=== PATIENT | male | born 1950 | race Caucasian/White ===

== ENCOUNTER 2016-03-21 17:42 | Inpatient (IN) | payer BC, OTHER ==
[~2016-03-21] VITALS: Ht 180.3 cm; Wt 102.9 kg
[2016-03-21] VITALS (8 sets, daily range): BP systolic 129–194; BP diastolic 75–113; PULSE 82–107; RESP 15–20; TEMP 97.6–100.8; O2SAT 93–100
[~2016-03-21 17:42] MED LIST: FLEX5TAB PO; MOTR200T47 PO
[2016-03-21] MEDS ORDERED: SODIUM CHLOR 0.9% 1000 ML INJ 1,000 ML IV SCH ×2 (18:18→19:30)
[2016-03-21] MEDS ORDERED: SODIUM CHLORIDE 0.9% FLUSH 5 ML FLUSH IVF PRN (18:30)
[2016-03-21] MEDS ORDERED: ACETAMINOPHEN 325 MG TAB PO ONE (18:30)
[2016-03-21] MEDS ORDERED: ONDANSETRON HCL 4 MG/2 ML VIAL IVP ONE (18:30)
--- NOTE | 2016-03-21 18:36 | PD ---
HPI Chief Complaint: Cold / Flu Symptoms Time Seen by Provider: 18:31 Travel History International Travel<30 days: No Contact w/Intl Traveler<30days: No Traveled to known affect area: No History of Present Illness HPI Patient is a 65-year-old otherwise healthy male presenting with fever, cough and body aches for 24 hours. MAXIMUM TEMPERATURE is 102.5 Fahrenheit, he has been taking ibuprofen which has helped. Last dose was today. He reports some "upset stomach "which she describes as a discomfort around his epigastrium but denies any pain. He reports nausea but denies vomiting. He reports reduced oral intake including fluids. He has had some loose stool but denies diarrhea, hematochezia and melena. He denies any abdominal, back or flank pain. He denies any ENT/URI symptoms. Cough is mostly dry with occasional white sputum. Denies wheezing and dyspnea and chest pain. He denies headache and neck stiffness. He did not receive influenza vaccine or Pneumovax. He has had some dysuria with increased urinary frequency without urinary urgency, penile lesions , scrotal pain or edema, anal or perineal pain and pyuria. [facility] Past Medical History Medical History: Denies Significant Hx Tetanus Vaccination: > 5 Years Influenza Vaccination: No Past Surgical History Neurologic Surgery: Yes (BACK) Social History Alcohol Use: No Tobacco Use: No Substance Use: No Allergies-Medications (Allergen,Severity, Reaction): Coded Allergies: Codeine (Verified Allergy, Mild, Nausea/Vomiting, 03/21/16) Reported Meds & Prescriptions Reported Meds & Active Scripts Active No Active Prescriptions or Reported Medications Review of Systems Except as stated in HPI: all other systems reviewed are Neg Physical Exam Narrative GENERAL: Well-developed and well-nourished adult male in no acute distress. SKIN: Warm and dry. Good turgor without tenting. HEAD: Normocephalic and atraumatic. EYES: PERRL bilaterally, 5mm. EOMI bilaterally. No injection or icterus present. No proptosis. Lids without edema or erythema. ENT: Bilateral ear canals are non-edematous/non-erythematous without otorrhea. Bilateral TMs have intact landmarks and without distortion, perforation, air- fluid level or erythema. Nasal mucosa pink and moist without discharge, septum intact and midline. Buccal mucosa pink and moist. Oropharynx reveals erythematous bilateral anterior tonsillar pilar is without tonsillar hypertrophy , masses, swelling, asymmetry and exudates. Uvula midline and airway patent. NECK: Supple, no meningeal signs. Trachea midline, no JVD. No cervical or facial lymphadenopathy. CARDIOVASCULAR: Mild tachycardia (100) with regular rhythm without murmurs, rubs , clicks or gallops. Radial and posterior tibial pulses 2+ bilaterally. No pedal edema. RESPIRATORY: Clear to auscultation bilaterally with symmetrical rise and fall, no distress or use of accessory muscles. GASTROINTESTINAL: Non-tender, non-distended. Normal bowel sounds all 4 quadrants. No masses or organomegaly present. MUSCULOSKELETAL: No gait disturbances. Patient freely moving all four extremities spontaneously. Extremities without clubbing, cyanosis, or edema. No obvious deformities. NEUROLOGIC: CN II-XII grossly intact. Awake and alert. Motor grossly within normal limits. Normal speech. PSYCHIATRIC: Appropriate mood and affect; insight and judgment normal. Data Data Last Documented VS Vital Signs Date Time Temp Pulse Resp B/P Pulse Ox O2 Delivery O2 Flow Rate FiO2 03/21/16 18:56 100 172/101 03/21/16 18:54 100.8 18 97 03/21/16 18:22 Room Air Orders Electrocardiogram (03/21/16 18:18) Complete Blood Count With Diff (03/21/16 18:18) Comprehensive Metabolic Panel (03/21/16 18:18) Group A Rapid Strep Screen (03/21/16 18:18) Influenzae A/B Antigen (03/21/16 18:18) Chest, Pa & Lat (03/21/16 18:18) Ecg Monitoring (03/21/16 18:18) Iv Access Insert/Monitor (03/21/16 18:18) Oximetry (03/21/16 18:18) Acetaminophen (Tylenol) (03/21/16 18:30) Sodium Chloride 0.9% Flush (Ns Flush) (03/21/16 18:30) Lipase (03/21/16 18:18) Prothrombin Time / Inr (Pt) (03/21/16 18:18) Act Partial Throm Time (Ptt) (03/21/16 18:18) Urinalysis - C+S If Indicated (03/21/16 18:18) Ondansetron Inj (Zofran Inj) (03/21/16 18:30) Sodium Chlor 0.9% 1000 Ml Inj (Ns 1000 M (03/21/16 18:18) Troponin I (03/21/16 18:18) Lactic Acid Sepsis Protocol (03/21/16 18:18) Blood Culture (03/21/16 18:18) Urine Culture (03/21/16 18:35) Strep Culture (Group A) (03/21/16 18:35) Ceftriaxone Inj (Rocephin Inj) (03/21/16 19:30) Vancomycin Inj (Vancomycin Inj) (03/21/16 19:30) Sodium Chlor 0.9% 1000 Ml Inj (Ns 1000 M (03/21/16 19:30) Labs Laboratory Tests Test 03/21/16 03/21/16 18:15 18:35 White Blood Count 12.5 TH/MM3 Red Blood Count 5.40 MIL/MM3 Hemoglobin 15.5 GM/DL Hematocrit 46.1 % Mean Corpuscular Volume 85.5 FL Mean Corpuscular Hemoglobin 28.8 PG Mean Corpuscular Hemoglobin 33.6 % Concent Red Cell Distribution Width 14.4 % Platelet Count 194 TH/MM3 Mean Platelet Volume 6.6 FL Neutrophils (%) (Auto) 87.2 % Lymphocytes (%) (Auto) 6.1 % Monocytes (%) (Auto) 5.5 % Eosinophils (%) (Auto) 0.9 % Basophils (%) (Auto) 0.3 % Neutrophils # (Auto) 10.9 TH/MM3 Lymphocytes # (Auto) 0.8 TH/MM3 Monocytes # (Auto) 0.7 TH/MM3 Eosinophils # (Auto) 0.1 TH/MM3 Basophils # (Auto) 0.0 TH/MM3 CBC Comment DIFF FINAL Differential Comment Prothrombin Time 12.0 SEC Prothromb Time International 1.1 RATIO Ratio Activated Partial 30.1 SEC Thromboplast Time Sodium Level 134 MEQ/L Potassium Level 3.9 MEQ/L Chloride Level 99 MEQ/L Carbon Dioxide Level 25.7 MEQ/L Anion Gap 9 MEQ/L Blood Urea Nitrogen 15 MG/DL Creatinine 1.36 MG/DL Estimat Glomerular Filtration 53 ML/MIN Rate Random Glucose 95 MG/DL Lactic Acid Level 1.2 mmol/L Calcium Level 8.8 MG/DL Total Bilirubin 1.0 MG/DL Aspartate Amino Transf 18 U/L (AST/SGOT) Alanine Aminotransferase 23 U/L (ALT/SGPT) Alkaline Phosphatase 75 U/L Troponin I 0.03 NG/ML Total Protein 8.5 GM/DL Albumin 3.7 GM/DL Lipase 221 U/L Urine Color YELLOW Urine Turbidity HAZY Urine pH 7.0 Urine Specific [place] 1.019 Urine Protein TRACE mg/dL Urine Glucose (UA) NEG mg/dL Urine Ketones NEG mg/dL Urine Occult Blood SMALL Urine Nitrite POS Urine Bilirubin NEG Urine Urobilinogen LESS THAN 2.0 MG/DL Urine Leukocyte Esterase LARGE Urine RBC 41 /hpf Urine WBC /hpf Urine Bacteria MANY /hpf Urine Mucus MANY /lpf Microscopic Urinalysis Comment CULTURE INDICATED MDM Medical Decision Making Medical Screen Exam Complete: Yes Emergency Medical Condition: Yes Interpretation(s) EKG: Normal sinus rhythm rate of 96. No complete right bundle-branch block with evidence of right ventricular conduction delay. Oral and pulse criteria for LVH. No ST-T changes. Normal axis. Last 24 hours Impressions Chest X-Ray 03/21/168 Signed Impressions: Service Date/Time: February 18:42 - CONCLUSION: No evidence of acute cardiopulmonary disease. Jovan Santizo MD Laboratory Tests Test 03/21/16 03/21/16 18:15 18:35 White Blood Count 12.5 TH/MM3 (4.0-11.0) Red Blood Count 5.40 MIL/MM3 (4.50-5.90) Hemoglobin 15.5 GM/DL (13.0-17.0) Hematocrit 46.1 % (39.0-51.0) Mean Corpuscular Volume 85.5 FL (80.0-100.0) Mean Corpuscular Hemoglobin 28.8 PG (27.0-34.0) Mean Corpuscular Hemoglobin 33.6 % Concent (32.0-36.0) Red Cell Distribution Width 14.4 % (11.6-17.2) Platelet Count 194 TH/MM3 (150-450) Mean Platelet Volume 6.6 FL (7.0-11.0) Neutrophils (%) (Auto) 87.2 % (16.0-70.0) Lymphocytes (%) (Auto) 6.1 % (9.0-44.0) Monocytes (%) (Auto) 5.5 % (0.0-8.0) Eosinophils (%) (Auto) 0.9 % (0.0-4.0) Basophils (%) (Auto) 0.3 % (0.0-2.0) Neutrophils # (Auto) 10.9 TH/MM3 (1.8-7.7) Lymphocytes # (Auto) 0.8 TH/MM3 (1.0-4.8) Monocytes # (Auto) 0.7 TH/MM3 (0-0.9) Eosinophils # (Auto) 0.1 TH/MM3 (0-0.4) Basophils # (Auto) 0.0 TH/MM3 (0-0.2) CBC Comment DIFF FINAL Differential Comment Prothrombin Time 12.0 SEC (9.8-11.6) Prothromb Time International 1.1 RATIO Ratio Activated Partial 30.1 SEC Thromboplast Time (24.3-30.1) Sodium Level 134 MEQ/L (136-145) Potassium Level 3.9 MEQ/L (3.5-5.1) Chloride Level 99 MEQ/L (98-107) Carbon Dioxide Level 25.7 MEQ/L (21.0-32.0) Anion Gap 9 MEQ/L (5-15) Blood Urea Nitrogen 15 MG/DL (7-18) Creatinine 1.36 MG/DL (0.60-1.30) Estimat Glomerular Filtration 53 ML/MIN (>89) Rate Random Glucose 95 MG/DL (74-106) Lactic Acid Level 1.2 mmol/L (0.4-2.0) Calcium Level 8.8 MG/DL (8.5-10.1) Total Bilirubin 1.0 MG/DL (0.2-1.0) Aspartate Amino Transf 18 U/L (15-37) (AST/SGOT) Alanine Aminotransferase 23 U/L (12-78) (ALT/SGPT) Alkaline Phosphatase 75 U/L (45-117) Troponin I 0.03 NG/ML (0.02-0.05) Total Protein 8.5 GM/DL (6.4-8.2) Albumin 3.7 GM/DL (3.4-5.0) Lipase 221 U/L (73-393) Urine Color YELLOW (YELLW/STRAW) Urine Turbidity HAZY (CLEAR) Urine pH 7.0 (5.0-8.5) Urine Specific [place] 1.019 (1.002-1.035) Urine Protein TRACE mg/dL (NEG-TRACE) Urine Glucose (UA) NEG mg/dL (NEG) Urine Ketones NEG mg/dL (NEG) Urine Occult Blood SMALL (NEG) Urine Nitrite POS (NEG) Urine Bilirubin NEG (NEG) Urine Urobilinogen LESS THAN 2.0 MG/DL (LESS THAN 2.0) Urine Leukocyte Esterase LARGE (NEG) Urine RBC 41 /hpf (0-3) Urine WBC /hpf (0-5) Urine Bacteria MANY /hpf (NONE) Urine Mucus MANY /lpf (OCC) Microscopic Urinalysis Comment CULTURE INDICATED Differential Diagnosis Viral syndrome versus pneumonia versus UTI versus enteritis versus dehydration versus electrolyte disturbance Narrative Course Patient is a 65-year-old otherwise healthy male with a remote history of lumbar surgery presenting with fever, myalgias and mildly white sputum producing cough for 24 hours. He also reports an dysuria and increased urinary frequency. He has some nausea with occasional "upset stomach" but denies any abdominal pain. Abdomen is benign on exam. Lungs clear to auscultation. No meningeal signs. Elevated temperature present and mild tachycardia present. Patient was given 1 L normal saline bolus, acetaminophen and Zofran ordered labs including troponin , CK-MB, lactic acid, blood cultures and lipase. Ordered EKG and chest x-ray as well as rapid strep and influenza test. Chest x-ray and EKG unremarkable. UA positive for nitrites, leukocyte esterase, 21 RBCs and a WBC with many bacteria. WBC shows leukocytosis of 12.5 with a neutrophilia, no bands. At about panel shows sodium 134. Creatinine 1.36, troponin 0.03. Lactic acid 1.2. Patient heart rate was only mildly reduced with the liter bolus and temperature actually went up while waiting for the workup. Discussed with Dr. Lynn who agrees that although the lactic acid is not elevated there is a concern for urosepsis. Patient was given ceftriaxone and vancomycin and additional bolus of saline and admitted. I gave report to Dr. Sheriff who accepted the admission. Diagnosis Primary Impression: Urinary tract infection Qualified Code: N30.01 - Acute cystitis with hematuria Admitting Information Admitting Physician Requests: Admit Scripts No Active Prescriptions or Reported Meds Condition: Stable Jovan Pulliam III Mar 21, 2016 18:36
[2016-03-21 18:48] LABS: AUTOMATED NEUTROPHIL # 10.9 TH/MM3 (1.8-7.7); BASOPHIL % 0.3 % (0.0-2.0); EOSINOPHIL # 0.1 TH/MM3 (0-0.4); EOSINOPHIL % 0.9 % (0.0-4.0); HEMATOCRIT 46.1 % (39.0-51.0); HEMO FLAGS DIFF FINAL; LYMPH % 6.1 % (9.0-44.0); LYMPHOCYTE # 0.8 TH/MM3 (1.0-4.8); MEAN CELL VOLUME 85.5 FL (80.0-100.0); MEAN CORPUSCULAR HEMOGLOBIN 28.8 PG (27.0-34.0); MEAN CORPUSCULAR HGB CONC 33.6 % (32.0-36.0); MONO % 5.5 % (0.0-8.0); NEUT % 87.2 % (16.0-70.0); PLATELET COUNT 194 TH/MM3 (150-450); RED CELL DISTRIBUTION WIDTH 14.4 % (11.6-17.2); WHITE BLOOD COUNT 12.5 TH/MM3 (4.0-11.0)
[2016-03-21 18:53] LABS: BACTERIA, URINE MANY /hpf; BLOOD, URINE SMALL (NEG); COMMENT (UR) CULTURE INDICATED; CULTURE IF INDICATED CULTURE INDICATED; GLUCOSE,URINE NEG (NEG); KETONE, URINE NEG (NEG); MUCUS URINE MANY /lpf (OCC); URINE COLOR YELLOW (YELLW/STRAW)
[2016-03-21 18:54] LABS: NITRITE,URINE POS (NEG)
--- NOTE | 2016-03-21 18:54 | RADRPT ---
EXAM DATE/TIME: 03/21/2016 18:42 [facility] COMPARISON: No previous studies available for comparison. INDICATIONS : Fever. Congestion. MEDICAL HISTORY : None. SURGICAL HISTORY : None. ENCOUNTER: Initial ACUITY: 3 days PAIN SCORE: 6/10 LOCATION: Bilateral chest FINDINGS: PA and lateral views of the chest demonstrate the lungs to be symmetrically aerated without evidence of mass, infiltrate or effusion. The cardiomediastinal contours are unremarkable. Osseous structure s are intact. CONCLUSION: No evidence of acute cardiopulmonary disease. Jovan Santizo MD on March 21, 2016 at 18:52 Board Certified Radiologist. This report was verified electronically.
[2016-03-21 18:58] LABS: APTT (PATIENT) 30.1 SEC (24.3-30.1); INTERNATIONAL NORMALIZED RATIO 1.1 RATIO
[2016-03-21 19:18] LABS: ANION GAP 9 MEQ/L (5-15); AST (GOT) 18 U/L (15-37); BICARBONATE 25.7 MEQ/L (21.0-32.0); BLOOD UREA NITROGEN 15 MG/DL (7-18); CHLORIDE 99 MEQ/L (98-107); GLOMERULAR FILTRATION RATE 53 ML/MIN (>89); POTASSIUM 3.9 MEQ/L (3.5-5.1); SODIUM (NA) 134 MEQ/L (136-145)
[2016-03-21 19:23] LABS: ALKALINE PHOSPHATASE 75 U/L (45-117); ALT (GPT) 23 U/L (12-78)
[2016-03-21] MEDS ORDERED: cefTRIAXone INJ 1,000 MG in SODIUM CHLORIDE 0.9% INJ 100 ML IV ONE (19:30)
[2016-03-21] MEDS ORDERED: VANCOMYCIN INJ 1,000 MG in SODIUM CHLOR 0.9% 250 ML INJ 250 ML IV ONE (19:30)
[2016-03-21] MEDS: SODIUM CHLOR 0.9% 1000 ML INJ 1,000 ML IV SCH (21:22)
[2016-03-22 01:51] VITALS: BP 161/90; TEMP 102.1
[2016-03-22] MEDS: ACETAMINOPHEN 325 MG TAB PO PRN ×3 (03:21→17:09)
[2016-03-22 03:59] VITALS: BP 130/79; PULSE 109; RESP 20; TEMP 100.2; O2SAT 95
[2016-03-22] MEDS: SODIUM CHLOR 0.9% 1000 ML INJ 1,000 ML IV SCH ×2 (06:13→17:25)
[2016-03-22 06:42] LABS: HEMATOCRIT 41.2 % (39.0-51.0); MEAN CELL VOLUME 85.4 FL (80.0-100.0); MEAN CORPUSCULAR HEMOGLOBIN 28.6 PG (27.0-34.0); MEAN CORPUSCULAR HGB CONC 33.6 % (32.0-36.0); PLATELET COUNT 174 TH/MM3 (150-450); RED BLOOD COUNT 4.83 MIL/MM3 (4.50-5.90); RED CELL DISTRIBUTION WIDTH 13.6 % (11.6-17.2); REVIEW FLAG FINAL; WHITE BLOOD COUNT 11.4 TH/MM3 (4.0-11.0)
[2016-03-22 07:08] LABS: POTASSIUM 3.9 MEQ/L (3.5-5.1)
[2016-03-22 07:46] VITALS: BP 111/66; PULSE 88; RESP 18; TEMP 98.7; O2SAT 94
[2016-03-22] MEDS: FAMOTIDINE 20 MG TAB PO SCH ×2 (09:02→22:43)
[2016-03-22] MEDS ORDERED: TAMSULOSIN HCL 0.4 MG CAP PO ONE (10:00)
--- NOTE | 2016-03-22 10:38 | MH ---
cc: BRITT BLACKMAN D.O.,NIKOLAY Issa MD DATE OF ADMISSION 03/21/[address] Britt Blackman CHIEF COMPLAINT The patient came to the ER complaining of fever or chills and weakness for two days. HISTORY OF PRESENT ILLNESS This is a pleasant 65-year-old male with no significant past medical history except arthritis affecting his hands and degenerative disk disease for which he underwent laminectomy several years ago. He was in his usual state of health until developing high-grade fevers associated with chills, malaise and weakness. He also reports having some queasiness and an upset stomach. He had taken ibuprofen to help control his temperature. He denies vomiting per se. Denies hematemesis. Denies melena or bright red blood per rectum. He has not been eating very well. He reports dark urine with hesitancy and weak stream. He has to strain to get the urine out. She has a mild cough which is dry and nonproductive. He ended up coming to the hospital and upon arrival, he was noted to be febrile. He was tachycardic, his white count was elevated at 12,000 with a left shift. Urinalysis evidence pyuria and bacteriuria. He was diagnosed with a urinary tract infection and possible early sepsis. Recommendation was given by ER physician for the patient to be admitted to the hospital for observation. The patient was given IV fluids, IV antibiotic and blood cultures were taken. He spiked a temperature again last night to 102 degrees Fahrenheit. He is currently resting in bed. He is feeling somewhat better. He denies chest pain, dyspnea, orthopnea, paroxysmal nocturnal dyspnea. PAST MEDICAL HISTORY This patient is significant for: 1. Degenerative disc disease 2. Degenerative joint disease 3. Prior history of UTI about a year ago. PAST SURGICAL HISTORY Significant for: 1. Lumbar laminectomy 2. Previous colonoscopy SOCIAL HISTORY The patient denies smoking, drinking or drug abuse. He is and lives with his . He works for a [employer] 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 HOME MEDICATIONS He does not take any medication on a daily and basis. He just took ibuprofen recently after having fever. FAMILY HISTORY Both her parents are . Mom in her 60s. She had dementia. Dad in his 70s of unknown cause. He has 11 siblings. They are healthy and living except one who of AIDS. REVIEW OF SYSTEMS The patient denies recent travel. Denies any penile discharges. He reports a weak urinary stream with postvoid dribbling. He sometimes gets up at night to urinate. He claimed that his prostate was checked over a year ago and it was "okay". He denies flank pain. Denies chest pain, shortness of orthopnea or paroxysmal nocturnal dyspnea. Otherwise review of systems is negative for 12 systems except for what is mentioned above. EXAMINATION This is a middle-aged male lying in bed not in any acute distress at this time. He is awake and alert. He is oriented x3. VITAL SIGNS: Upon arrival, blood pressure 153/97, pulse of 100, respirations 16, temperature 100.1, O2 sat 97%. T-max is 102.1 degrees Fahrenheit. HEAD: Normocephalic, atraumatic. EYES: Extraocular movements intact. Pupils are round and reactive. There is no icterus or significant pallor. ENT: No throat congestion. No oral ulcers or thrush. Ears clear. NECK: Supple. No JVD. No lymph nodes or bruits. CARDIOVASCULAR: S1-S2 audible. Regular rhythm. No murmur or gallop. RESPIRATORY: Lungs are clear to auscultation. No crackles or rhonchi appreciated. GI: Soft, protuberant bulky, nontender. Positive bowel sounds. No CVA tenderness. The patient has supra pubic tenderness which is mild. No guarding or rebound. EXTREMITIES: No edema, cyanosis or clubbing. Feet are warm to touch. Homans' sign is negative. NEUROLOGIC: He is awake and alert. He is oriented x3. No facial asymmetry. Moving all four extremities. LABORATORY DATA White count of 12.5, hemoglobin 15.3, hematocrit 46.1, platelet count of 194, MCV of 85.5. Repeat white count this morning 11.4. Sodium 154, potassium 3.9, chloride 99, bicarb 25.7, BUN of 15, creatinine 1.36, glucose 95, calcium was 8.8. LFTs essentially unremarkable except for total protein is elevated at 8.5. His urine pH 7.0, specific gravity 1.019, nitrite positive, leukocyte esterase large, bacteria many, RBCs 41. Chest x-ray was taken and this study was negative for acute infiltrate or effusion. ASSESSMENT 1. Acute febrile illness with pyuria and bacteruria in this middle-aged male. Symptoms suggestive urinary tract infection, rule out pyelonephritis, possible early sepsis. 2. Hesitancy, post-void dribbling with weak urinary stream, suspect he might have an underlying prostatic problem I.e., enlarged posterior due to BPH. 3. Renal insufficiency, acute versus chronic. 4. History of degenerative joint disease. 5. Leukocytosis 6. Elevated total protein PLAN 1. The patient is admitted to the hospital. He was placed in observation unit, however, due to his recurrent fever and leukocytosis, there is concern about possible bacteremia and early sepsis. Therefore, he will need to be on IV antibiotics for a longer duration and needs monitoring of blood cultures and urine cultures along with control of infection, therefore he meets inpatient criteria. We will change him to inpatient. We will continue IV antibiotic. We will follow urine cultures and blood cultures and adjust antibiotics. Will obtain an ultrasounds of the kidneys to rule out obstruction or hydronephrosis and rule out underlying renal stones or other structural deformities leading to UTI. 2. Give him Tylenol p.r.n. 3. Will give Pepcid for GI protection. 4. Monitor CBC, renal function and electrolytes. 5. Give subcu Lovenox for DVT prophylaxis. 6. I have discussed the findings with the patient. I have answered all of his questions. 7. I will order him Flomax. 8. I have recommended him to have outpatient urologic evaluation for possible underlying prostatic problems. Further management of this patient will be dependent on the hospital course. MD CLAUDIA Starr/ROBIN /9:49 AM /10:12 AM KAI
[2016-03-22 11:44] VITALS: BP 125/81; PULSE 95; RESP 20; TEMP 101; O2SAT 96
[2016-03-22] MEDS: ENOXAPARIN SODIUM 40 MG/0.4 ML SYRINGE SQ SCH (12:53)
--- NOTE | 2016-03-22 13:09 | EKG ---
Date Performed: 03/21/2016 Time Performed: 18:31:53 PTAGE: 65 years EKG: Sinus rhythm POSSIBLE RIGHT VENTRICULAR CONDUCTION DELAY MODERATE VOLTAGE CRITERIA FOR LVH, CONSIDER NORMAL VARIA NT BORDERLINE ECG NO PREVIOUS TRACING DOCTOR: Navid Diaz Interpretating Date/Time 03/22/2016 13:07:21
[2016-03-22 16:00] VITALS: BP 114/71; PULSE 88; RESP 18; TEMP 100.2; O2SAT 94
[2016-03-22 20:00] VITALS: BP 118/71; PULSE 83; RESP 18; TEMP 99.3; O2SAT 95
[2016-03-22] MEDS: cefTRIAXone INJ 1,000 MG in SODIUM CHLORIDE 0.9% INJ 100 ML IV SCH (22:43)
[2016-03-23] VITALS: BP 123/76; PULSE 78; RESP 16; TEMP 99.2; O2SAT 94
[2016-03-23] MEDS: SODIUM CHLOR 0.9% 1000 ML INJ 1,000 ML IV SCH ×2 (02:46→13:00)
[2016-03-23 04:00] VITALS: BP 109/61; PULSE 80; RESP 16; TEMP 100.4; O2SAT 95
[2016-03-23 07:34] VITALS: BP 126/87; PULSE 81; RESP 20; TEMP 98.3; O2SAT 96
[2016-03-23 07:37] LABS: HEMATOCRIT 41.3 % (39.0-51.0); MEAN CELL VOLUME 85.1 FL (80.0-100.0); MEAN CORPUSCULAR HEMOGLOBIN 28.5 PG (27.0-34.0); MEAN CORPUSCULAR HGB CONC 33.5 % (32.0-36.0); PLATELET COUNT 167 TH/MM3 (150-450); RED BLOOD COUNT 4.85 MIL/MM3 (4.50-5.90); RED CELL DISTRIBUTION WIDTH 13.8 % (11.6-17.2); REVIEW FLAG FINAL; WHITE BLOOD COUNT 9.4 TH/MM3 (4.0-11.0)
[2016-03-23] MEDS: TAMSULOSIN HCL 0.4 MG CAP PO SCH (09:11)
[2016-03-23] MEDS: FAMOTIDINE 20 MG TAB PO SCH ×2 (09:11→19:43)
[2016-03-23 11:37] VITALS: BP 147/96; PULSE 78; RESP 20; TEMP 99.3; O2SAT 96
[2016-03-23] MEDS: ACETAMINOPHEN 325 MG TAB PO PRN (12:20)
[2016-03-23] MEDS: ENOXAPARIN SODIUM 40 MG/0.4 ML SYRINGE SQ SCH (13:42)
[2016-03-23 15:00] VITALS: BP 125/84; PULSE 84; RESP 20; TEMP 99.3; O2SAT 97
--- NOTE | 2016-03-23 15:31 | HHI.PR ---
Subjective History of Present Illness Feels better Temperature is down No nausea vomiting Appetite improving No abdominal pain Making a lot of urine Offers no other complaints Vitals/Results Intake & Output 03/22/16 03/22/16 03/23/16 15:00 23:00 07:00 Intake Total 240 ml 480 ml Balance 240 ml 480 ml Intake Oral 240 ml 480 ml # Voids 3 2 Vital Signs Vital Signs Date Time Temp Pulse Resp B/P Pulse Ox O2 Delivery O2 Flow Rate FiO2 03/23/16 11:37 99.3 78 20 147/96 96 03/23/16 07:34 98.3 81 20 126/87 96 03/23/16 04:00 100.4 80 16 109/61 95 03/23/16 00:00 99.2 78 16 123/76 94 03/22/16 20:00 99.3 83 18 118/71 95 03/22/16 16:00 100.2 88 18 114/71 94 CBC/BMP: 03/23/16 0701 03/22/16 0600 Lab Results Laboratory Tests Test 03/23/16 07:01 White Blood Count 9.4 TH/MM3 Red Blood Count 4.85 MIL/MM3 Hemoglobin 13.8 GM/DL Hematocrit 41.3 % Mean Corpuscular Volume 85.1 FL Mean Corpuscular Hemoglobin 28.5 PG Mean Corpuscular Hemoglobin 33.5 % Concent Red Cell Distribution Width 13.8 % Platelet Count 167 TH/MM3 Mean Platelet Volume 6.8 FL Physical Exam General General Appearance: No Acute Distress, Comfortable Eyes Eye Exam: Sclera White, Extraocular Movement Intact Ears & Nose Ears & Nose Exam: Nasal Mucosa [place] Throat Throat Exam: Oral Mucosa [place] & Moist Neck Neck Exam: Neck Supple, Trachea Midline Pulmonary Resp Exam: Clear Bilaterally, Breath Sounds Equal Cardiology CV Exam: Regular, Normal Sinus Rhythm Gastrointestinal/Abdomen GI Exam: Soft, Non-Tender, Bowel Sounds Present Integumentary Skin Exam: Warm, Dry Extremeties Extremities Exam: No Edema, Pedal Pulses Palpable Neurologic Neuro Exam: Alert, Awake, Oriented, Speech Clear, Moving All Extremities Psychiatric Psych Exam: Appropriate Responses Assessment/Plan Assessment/Plan ASSESSMENT 1. Acute febrile illness with pyuria and bacteruria in this middle-aged male. Symptoms suggestive urinary tract infection, rule out pyelonephritis, possible early sepsis. 2. Hesitancy, post-void dribbling with weak urinary stream, suspect he might have an underlying prostatic problem I.e., enlarged posterior due to BPH. 3. Renal insufficiency, acute versus chronic. 4. History of degenerative joint disease. 5. Leukocytosis 6. Elevated total protein Plan Urine culture positive for Klebsiella oxytoca, sensitive to antibiotic Blood cultures negative for 2 days Continue IV Rocephin for another day Discontinue IV fluids If cultures remain negative, will change antibiotic to by mouth and discharge him home Continue Flomax Continue current medication Discussed patient discussed with RN Will follow Dakota Sheriff MD Mar 23, 2016 15:31
[2016-03-23] MEDS: cefTRIAXone INJ 1,000 MG in SODIUM CHLORIDE 0.9% INJ 100 ML IV SCH (19:43)
[2016-03-23 20:00] VITALS: BP 140/96; PULSE 87; RESP 18; TEMP 99.7; O2SAT 96
[2016-03-24] VITALS: BP 136/95; PULSE 85; RESP 18; TEMP 99.6; O2SAT 98
[2016-03-24 04:00] VITALS: BP 118/77; PULSE 79; RESP 18; TEMP 98.7; O2SAT 97
[2016-03-24 08:00] VITALS: BP 122/82; PULSE 85; RESP 18; TEMP 98.6; O2SAT 94
[2016-03-24] MEDS: FAMOTIDINE 20 MG TAB PO SCH (09:00)
[2016-03-24] MEDS: TAMSULOSIN HCL 0.4 MG CAP PO SCH (09:16)
[2016-03-24] MEDS: ENOXAPARIN SODIUM 40 MG/0.4 ML SYRINGE SQ SCH (12:00)
--- NOTE | 2016-03-24 14:00 | HHI.PR ---
Subjective History of Present Illness AFEBRILE Feels much better/eager to go home No nausea vomiting Good Appetite No abdominal pain Making a lot of urine had bowel movement Offers no other complaints is at bedside Vitals/Results Intake & Output 03/23/16 03/23/16 03/24/16 14:59 22:59 06:59 Intake Total 702 ml 1789 ml 480 ml Balance 702 ml 1789 ml 480 ml Intake Oral 702 ml 720 ml 480 ml IV Total 1069 ml # Voids 5 4 2 # Bowel Movements 0 Vital Signs Vital Signs Date Time Temp Pulse Resp B/P Pulse Ox O2 Delivery O2 Flow Rate FiO2 03/24/16 08:00 98.6 85 18 122/82 94 03/24/16 04:00 98.7 79 18 118/77 97 03/24/16 00:00 99.6 85 18 136/95 98 03/23/16 20:00 99.7 87 18 140/96 96 03/23/16 15:00 99.3 84 20 125/84 97 CBC/BMP: 03/23/16 0701 03/22/16 0600 Physical Exam General General Appearance: No Acute Distress, Comfortable Eyes Eye Exam: Sclera White, Extraocular Movement Intact Ears & Nose Ears & Nose Exam: Nasal Mucosa [place] Throat Throat Exam: Oral Mucosa [place] & Moist Neck Neck Exam: Neck Supple, Trachea Midline Pulmonary Resp Exam: Clear Bilaterally, Breath Sounds Equal Cardiology CV Exam: Regular, Normal Sinus Rhythm Gastrointestinal/Abdomen GI Exam: Soft, Non-Tender, Bowel Sounds Present Integumentary Skin Exam: Warm, Dry Extremeties Extremities Exam: No Edema, Pedal Pulses Palpable Neurologic Neuro Exam: Alert, Awake, Oriented, Speech Clear, Moving All Extremities Psychiatric Psych Exam: Appropriate Responses Assessment/Plan Assessment/Plan ASSESSMENT 1. suspect Complicated UTI /early sepsis on admission, possible early sepsis. 2. Hesitancy, post-void dribbling with weak urinary stream, suspect he might have an underlying prostatic problem I.e., enlarged posterior due to BPH. 3. Renal insufficiency, acute versus chronic. 4. History of degenerative joint disease. 5. Leukocytosis 6. Elevated total protein Plan Urine culture positive for Klebsiella oxytoca, sensitive to antibiotic Blood cultures negative for 3 days d/c IV Rocephin po cipro x 7days Discontinue IV fluids Continue Flomax Continue current medication d/c home today see orders Discussed patient & his out pt eval for possible underlying BPH discussed with RN f/u pcp Dakota Sheriff MD Mar 24, 2016 14:00
[2016-03-24] MEDS ORDERED: TAMS0.4C4 PO (14:14)
[2016-03-24] MEDS ORDERED: CIPR500T2 PO (14:14)
--- NOTE | 2016-03-29 18:36 | HHI.DS ---
Discharge Summary Admission Date Mar 22, 2016 at 09:41 Discharge Date: Mar 24, 2016 Admitting Diagnosis UTI R/O SEPSIS (1) Urinary tract infection (2) Urinary hesitancy (3) Renal insufficiency (4) Acute febrile illness Imaging Last Impressions Chest X-Ray 03/21/168 Signed Impressions: Service Date/Time: February 18:42 - CONCLUSION: No evidence of acute cardiopulmonary disease. Jovan Santizo MD Hospital Course This is a pleasant 65-year-old male with no significant past medical history except arthritis affecting his hands and degenerative disk disease for which he underwent laminectomy several years ago. He was in his usual state of health until developing high-grade fevers associated with chills, malaise and weakness. He also reported having some queasiness and an upset stomach. He had taken ibuprofen to help control his temperature. He denied vomiting per se. Denied hematemesis. Denied melena or bright red blood per rectum. He had not been eating very well. He reported dark urine with hesitancy and weak stream. He had to strain to get the urine out. He had a mild cough which is dry and nonproductive. He ended up coming to the hospital and upon arrival, he was noted to be febrile. He was tachycardic, his white count was elevated at 12,000 with a left shift. Urinalysis evidence pyuria and bacteriuria. He was diagnosed with a urinary tract infection and possible early sepsis. Recommendation was given by ER physician for the patient to be admitted to the hospital for observation. The patient was given IV fluids, IV antibiotic and blood cultures were taken. He spiked a temperature to 102 degrees Fahrenheit. Pt. admitted for: ASSESSMENT 1. Acute febrile illness with pyuria and bacteruria in this middle-aged male. Symptoms suggestive urinary tract infection, rule out pyelonephritis, possible early sepsis. 2. Hesitancy, post-void dribbling with weak urinary stream, suspect he might have an underlying prostatic problem I.e., enlarged posterior due to BPH. 3. Renal insufficiency, acute versus chronic. 4. History of degenerative joint disease. 5. Leukocytosis 6. Elevated total protein During the course of the hospitalization, the following to place Because of the concern for early sepsis and bacteremia, patient was put on IV antibiotics, IV fluids were given Cultures were followed, urine culture came back positive for Klebsiella oxytoca Blood cultures remain negative Put on Pepcid for GI protection. Monitored CBC, renal function and electrolytes. Given subcu Lovenox for DVT prophylaxis. Was started on Flomax-recommended him to have outpatient urologic evaluation for possible underlying prostatic problems. Symptoms improve, afebrile Based on cultures, patient was on correct antibiotics He was recommended to continue on po cipro x 7days Patient was discharged home in stable condition Pt Condition on Discharge: Stable Discharge Disposition: Discharge Home Discharge Instructions DIET: Follow Instructions for: Heart Healthy Diet Fluid Restrictions: none Activities you can perform: Weight Bearing as Sravan Follow up Referrals: PCP Follow-up - 1 Week New Medications: Ciprofloxacin (Ciprofloxacin) 500 Mg Tab 500 MG PO BID Infection #14 Ref 0 TAB Tamsulosin (Tamsulosin) 0.4 Mg Cap 0.4 MG PO HS Manage Prostate Problems #30 Ref 0 CAP Monica Tapia Mar 29, 2016 18:35
[2016-05-01] MEDS ORDERED: TAMS0.4C4 PO (10:12)
[2016-05-01] MEDS ORDERED: VIAG50TA PO (10:16)
== END 2016-03-24 15:09 | disposition home or self-care (01) | DRG 872 ==
LOC: NEPE 17:42 → NEDA 19:38 → NEPGCP 22:08 → OBSVTOIN 03-22 09:41 → HOCB 03-22 15:27
PROVIDERS: ADMIT Specialist; ATTEND Specialist
DX: A41.9 Sepsis, unspecified organism (principal); N39.0 Urinary tract infection, site not specified; N28.9 Disorder of kidney and ureter, unspecified; B96.1 Klebsiella pneumoniae [K. pneumoniae] as the cause of diseases classified elsewhere; M13.841 Other specified arthritis, right hand; M13.842 Other specified arthritis, left hand; N39.43 Post-void dribbling; R39.12 Poor urinary stream; Z88.5 Allergy status to narcotic agent
CPT/HCPCS: 71020; 80048; 80053; 81001; 83605; 83690; 84484; 85025; 85027; 85610; 85730; 87040; 87077; 87081; 87086; 87186; 87804; 87880; 93005; 96361; 96374; G0378; J0696; J1650; J2405; J3370; J7030; J7050